=== PATIENT | female | born 1985 | race Caucasian/White ===

== ENCOUNTER 2017-04-11 06:05 | Observation (INO) | payer OTHER ==
[~2017-04-11] VITALS: Ht 157.5 cm; Wt 61.7 kg
[2017-04-11 07:52] VITALS: BP_SYST 117
== END 2017-04-11 13:00 | disposition home or self-care (01) ==
LOC: SPU 06:05
PROVIDERS: ADMIT Specialist; ATTEND Specialist
DX: O46.92 Antepartum hemorrhage, unspecified, second trimester (principal); Z3A.22 22 weeks gestation of pregnancy
CPT/HCPCS: 76805; 81002; G0378